=== PATIENT | female | born 1975 | race Two or more races ===

== ENCOUNTER 2017-03-06 11:35 | Inpatient (IN) | payer BC ==
[~2017-03-06] VITALS: Ht 154.9 cm; Wt 76.4 kg
[2017-03-06] VITALS (9 sets, daily range): BP systolic 106–117; BP diastolic 56–72
[~2017-03-06 11:35] MED LIST: ENDOCET 5-3251 EACH PO; IBUPROFEN800 MG PO; NOHOMEMEDS; PRENATAL TABLE1 EAC3 PO
[2017-03-06] MEDS ORDERED: PRENATAL TABLE1 EAC3 PO (12:14)
[2017-03-06 13:10] LABS: BASOPHIL (%) 0.3 % (0-1); EOSINOPHIL (%) 0.2 % (0-5); HEMATOCRIT 30.5 % (36.0-46.0); HEMOGLOBIN 9.7 G/DL (11.9-15.5); IMMATURE GRANULOCYTE (%) 0.4 % (0.0-0.7); LYMPHOCYTE (%) 10.6 % (15-42); LYMPHOCYTE COUNT 1.1 K/uL (1.0-2.8); MCH 21.7 PG (29.0-34.0); MCHC 31.8 G/DL (30.0-36.0); MCV 68.1 FL (83-99); MONOCYTE (%) 4.2 % (3-12); MONOCYTE COUNT 0.4 K/uL (0-0.8); NEUTROPHIL (%) 84.3 % (45-76); NEUTROPHIL COUNT 8.5 K/uL (1.8-6.4); PLATELET COUNT 313 K/uL (156-360); RBC DIS.WIDTH-CV 16.4 % (11.8-14.6); RBC DIS.WIDTH-SD 39.6 % (39-53); RED BLOOD COUNT 4.48 M/uL (3.80-5.20); WHITE BLOOD COUNT 10.1 K/uL (4.1-10.2)
[2017-03-06] MEDS ORDERED: IBUPROFEN800 MG PO (16:20)
[2017-03-07 07:31] VITALS: BP 104/68
[2017-03-07 07:50] LABS: BASOPHIL (%) 0.3 % (0-1); EOSINOPHIL (%) 0.4 % (0-5); EOSINOPHIL COUNT 0.1 K/uL (0-0.3); HEMATOCRIT 26.2 % (36.0-46.0); HEMOGLOBIN 8.1 G/DL (11.9-15.5); IMMATURE GRANULOCYTE (%) 0.4 % (0.0-0.7); LYMPHOCYTE (%) 14.2 % (15-42); LYMPHOCYTE COUNT 1.6 K/uL (1.0-2.8); MCH 21.3 PG (29.0-34.0); MCHC 30.9 G/DL (30.0-36.0); MCV 68.9 FL (83-99); MONOCYTE (%) 6.5 % (3-12); MONOCYTE COUNT 0.8 K/uL (0-0.8); NEUTROPHIL (%) 78.2 % (45-76); NEUTROPHIL COUNT 9.1 K/uL (1.8-6.4); PLATELET COUNT 280 K/uL (156-360); RBC DIS.WIDTH-CV 16.4 % (11.8-14.6); RBC DIS.WIDTH-SD 40.5 % (39-53); WHITE BLOOD COUNT 11.6 K/uL (4.1-10.2)
[2017-03-07 14:54] VITALS: BP 100/60
[2017-03-07 19:30] VITALS: BP 108/63
[2017-03-08 07:00] VITALS: BP 115/82
== END 2017-03-08 15:26 | disposition home or self-care (01) | DRG 775 ==
LOC: LDRP-OP 11:35 → 2WEST 11:36
PROVIDERS: Advanced Practice Midwife
DX: O62.2 Other uterine inertia (principal); O99.02 Anemia complicating childbirth; D62 Acute posthemorrhagic anemia; Z3A.39 39 weeks gestation of pregnancy; Z37.0 Single live birth; Z83.3 Family history of diabetes mellitus; Z82.49 Family history of ischemic heart disease and other diseases of the circulatory system
CPT/HCPCS: 85025; J7120